=== PATIENT | female | born 1925 | race Caucasian/White ===

== ENCOUNTER 2017-01-15 01:28 | Emergency (ER) | payer BC ==
[~2017-01-15] VITALS: Ht 152.4 cm; Wt 62.1 kg
[~2017-01-15 01:28] MED LIST: AMLO2.5T2 PO; CALCTAB5 PO; IBUP-1277 PO; MULT-506 PO; PANT40TA PO; SYN88 PO; TIMO0.5S2 OPB
[2017-01-15 01:37] VITALS: TEMP 36.6; Ht 152.4 cm; Wt 62.1 kg
--- NOTE | 2017-01-15 02:23 | EMERGENCY ROOM VISIT NOTE ---
History Report prepared by [place]aine: Marco Wong Under the Supervision of: Dr. Rodney Lafleur D.O. First contact with patient: 01:29 Chief Complaint: ANKLE PAIN Stated Complaint: ANKLE PAIN History of Present Illness The patient is an 89 year old female who presents to the Emergency Room via ambulance with complaints of constant left ankle pain due to a fall beginning two and a half hours prior to arrival. She associates a contusion to her upper lip with today's symptoms. The patient states she uses a cane to get around, and she slipped on her floor this evening. She notes she was able to get to the living room to call her for assistance. The patient denies losing consciousness. 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 Review of Systems See HPI for pertinent positives & negatives. A total of 10 systems reviewed and were otherwise negative. Past Medical & Surgical Medical Problems: (1) Hypertension (2) Hypothyroidism Surgical Problems: (1) Status post right partial knee replacement Family History Patient reports no known family medical history. Social History Smoking Status: Never Smoker Marital Status: Housing Status: lives with significant other Occupation Status: retired Current/Historical Medications Scheduled Amlodipine Besylate (Norvasc), 2.5 MG PO DAILY Calcium (Caltrate), 600 MG PO DAILY Ibuprofen (Advil), 200 MG PO DAILY PRN Levothyroxine (Synthroid *), 0.088 MG PO DAILY Multivitamin (Multivitamin), 1 TAB PO DAILY Pantoprazole (Protonix), 40 MG PO DAILY Timolol Gfs 0.5% Oph (Timoptic-Xe 0.5% Oph), 1 DROP OPB DAILY Allergies Coded Allergies: Nitrofurantoin (Verified Allergy, Mild, 04/24/10) Physical Exam Vital Signs Date Time Temp Pulse Resp B/P Pulse Ox O2 Delivery O2 Flow Rate FiO2 01/15/17 01:37 36.6 89 18 138/75 97 Room Air Physical Exam CONSTITUTIONAL/VITAL SIGNS: Reviewed / noted above. GENERAL: Non-toxic in appearance. INTEGUMENTARY: Warm, dry, and [place]. HEAD: Normocephalic. Small contusion to the upper lip. EYES: without scleral icterus or trauma. ENT/OROPHARYNX: clear and moist. LYMPHADENOPATHY/NECK: Is supple without lymphadenopathy or meningismus. RESPIRATORY: Lungs clear and equal. CARDIOVASCULAR: Regular rate and rhythm. GI/ABDOMEN: Soft and nontender. No organomegaly or pulsatile mass. No rebound or guarding. Normal bowel sounds. EXTREMITIES: Mild swelling to the left lateral malleolus with mild tenderness. Warm and well perfused. BACK: No CVA tenderness. NEUROLOGICAL: Intact without focal deficits. PSYCHIATRIC: normal affect. MUSCULOSKELETAL: Normally developed with good muscle tone. Medical Decision & Procedures ER Provider Diagnostic Interpretation: X ray results and stated below per my interpretation. LEFT ANKLE XRAY: Left lateral malleolus fracture. ED Course 1340: Previous medical records were reviewed. The patient was evaluated in room C4. A complete history and physical examination was performed. 1415: On reevaluation, the patient is doing well. I discussed the results and findings with the patient. She verbalized agreement of the treatment plan. The patient was discharged home. Medical Decision Differential includes close head injury, intracranial bleed, facial trauma, cervical spine trauma, chest and thoracic trauma, abdominal and intra-abdominal trauma, spine neurologic trauma, extremity trauma. This is an 89-year-old female who presents to the ED with a chief complaint of a fall. The patient states that she slipped at home on the floor. She complains of left lateral ankle pain. The patient denies loss of consciousness. She states that she struck her upper lip on the ground. She has a small contusion on the upper lip. There is some lateral swelling of the ankle on the left. She has mild tenderness there. She is otherwise neurovascularly intact distally. She is no other injuries. The patient was placed in a posterior and sugar tong splint the left lower extremity. She does have a walker at home that she can use. She is felt to be stable for discharge. She has seen Dr. Zhu in the past. She will follow-up with him. Impression Primary Impression: Fracture of distal end of left fibula Scribe Attestation The scribe's documentation has been prepared under my direction and personally reviewed by me in its entirety. I confirm that the note above accurately reflects all work, treatment, procedures, and medical decision making performed by me. Departure Information Dispostion Home / Self-Care Referrals Jerod Lu M.D. (PCP) Humza Zhu M.D. Patient Instructions ED Fx Ankle Lateral Malleolus, My [facility] Additional Instructions Keep splint clean and dry. Use walker to assist with walking. Take Tylenol or Motrin as needed. Follow-up with Dr. Zhu. Call Tuesday morning for an appointment.
[2017-01-15] MEDS ORDERED: FLUT0.15 NAE (02:40)
[2017-01-15] MEDS ORDERED: LEVO88TA3 PO (02:40)
[2017-01-15] MEDS ORDERED: CLR10 PO (02:41)
[2017-01-15] MEDS ORDERED: TMPOPS15 (02:42)
[2017-01-15] MEDS ORDERED: CHOL100027 PO (02:42)
[2017-01-15] MEDS ORDERED: TIMO0.5S35 OP (02:42)
[2017-01-15] MEDS ORDERED: ROPI1TAB PO (02:43)
[2017-01-15 03:29] VITALS: BP 113/64; PULSE 88; O2SAT 97
--- NOTE | 2017-01-15 07:44 | DIAGNOSTIC IMAGING REPORT ---
LEFT ANKLE MIN 3 VIEWS ROUTINE CLINICAL HISTORY: Left ankle pain status post trauma COMPARISON: None. DISCUSSION: There is lateral soft tissue swelling. There is an oblique fracture of the distal fibula. The ankle mortise appears intact on these nonstress views. There is calcaneal spurring. There is lateral soft tissue swelling. IMPRESSION: Nondisplaced fracture of the distal fibula. Electronically signed by: Richard Ennis M.D. 01/15/2017 7:42 AM Dictated Date/Time: 01/15/2017 7:37 AM
== END 2017-01-15 03:00 | disposition home or self-care (01) ==
LOC: EDBD 01:28 → C.EDC 01:29 → C.EDB 03:00
DX: S82.832A Other fracture of upper and lower end of left fibula, initial encounter for closed fracture (principal); S00.531A Contusion of lip, initial encounter; W01.0XXA Fall on same level from slipping, tripping and stumbling without subsequent striking against object, initial encounter; Y92.009 Unspecified place in unspecified non-institutional (private) residence as the place of occurrence of the external cause; I10 Essential (primary) hypertension; E03.9 Hypothyroidism, unspecified

== ENCOUNTER → 2017-02-07 | Outpatient (CLI) | payer BC ==
[~2017-02-07] MED LIST changes: -CALCTAB5 PO; +CHOL100027 PO; +CLR10 PO; +FLUT0.15 NAE; -IBUP-1277 PO; +LEVO88TA3 PO; +ROPI1TAB PO; -SYN88 PO; -TIMO0.5S2 OPB; +TIMO0.5S35 OP
[2017-02-07 14:42] LABS: BASO % 0.3 %; BASO ABS # 0.02 K/uL (0-0.2); COMPLETE YES; EOS % 2.3 %; HEMATOCRIT 41.3 % (37-47); IG% 0.5 %; LYMPH % 34.6 %; LYMPH ABS # 2.13 K/uL (1.2-3.4); MEAN CELL VOLUME 98.6 fL (80-100); MEAN CORPUSCULAR HEMOGLOBIN 32.2 pg (25-34); MEAN CORPUSCULAR HGB CONC 32.7 g/dl (32-36); MEAN PLATELET VOLUME 10.2 fL (7.4-10.4); MONO % 15.1 %; NEUT % 47.2 %; PLATELET COUNT 260 K/uL (130-400); RED BLOOD COUNT 4.19 M/uL (4.2-5.4); WHITE BLOOD COUNT 6.15 K/uL (4.8-10.8)
[2017-02-07 15:11] LABS: BLOOD UREA NITROGEN 10 mg/dl (7-18); BUN/CREATININE RATIO 19.8 (10-20); CALCIUM 9.4 mg/dl (8.5-10.1); CARBON DIOXIDE 31 mmol/L (21-32); CHLORIDE 100 mmol/L (98-107); CREATININE 0.52 mg/dl (0.60-1.20); GLUCOSE 95 mg/dl (70-99); POTASSIUM 4.1 mmol/L (3.5-5.1); SODIUM 137 mmol/L (136-145)
[2017-02-07 15:21] LABS: FERRITIN 81.9 ng/ml (8.0-388.0); THYROID STIMULATING HORMONE 0.789 uIu/ml (0.300-4.500)
== END | disposition home or self-care (01) ==
LOC: C.LAB 13:41
PROVIDERS: ATTEND Internal Medicine Geriatric Medicine
DX: I10 Essential (primary) hypertension (principal); E03.9 Hypothyroidism, unspecified; M19.90 Unspecified osteoarthritis, unspecified site; J31.0 Chronic rhinitis; E55.9 Vitamin D deficiency, unspecified; G25.81 Restless legs syndrome

== ENCOUNTER → 2017-03-08 | Outpatient (CLI) | payer BC ==
--- NOTE | 2017-03-08 14:19 | DIAGNOSTIC IMAGING REPORT ---
LEFT LOWER EXTREMITY VENOUS DOPPLER HISTORY: Left leg edema. COMPARISON STUDY: None. FINDINGS: There is normal compressibility, flow, and augmentation within the left lower extremity deep venous system. IMPRESSION: No DVT within the left lower extremity. Electronically signed by: Shahram Miller M.D. 03/08/2017 2:18 PM Dictated Date/Time: 03/08/2017 2:18 PM
== END | disposition home or self-care (01) ==
LOC: C.ULTRBC 13:35
PROVIDERS: ATTEND Physician Assistant Medical
DX: R60.0 Localized edema (principal)